=== PATIENT | male | born 1960 ===

== ENCOUNTER → 2019-03-12 12:05 | Outpatient (CLI) | payer OTHER ==
[~2019-03-12 12:05] MED LIST: APRESOLINE 10MG10 MG PO; HYZAAR 100-251 EACH PO; INTESTINEX680 M1 PO; NORVASC5 MG PO; PEPCID20 MG PO; PROTONIX40 MG PO
== END | disposition home or self-care (01) ==
LOC: EKG 12:05
DX: Z13.6 Encounter for screening for cardiovascular disorders (principal)